=== PATIENT | female | born 1935 | race Caucasian/White ===

== ENCOUNTER → 2016-12-04 | Outpatient (CLI) | payer MEDICARE, BC | END | disposition home or self-care (01) | DX: M79.662 Pain in left lower leg (principal); M79.89 Other specified soft tissue disorders; Z86.718 Personal history of other venous thrombosis and embolism ==

== ENCOUNTER → 2016-12-14 | Outpatient (CLI) | payer MEDICARE, BC | END | disposition home or self-care (01) | LOC: RAD.S 12:20 | DX: M54.41 Lumbago with sciatica, right side (principal); M48.56XA Collapsed vertebra, not elsewhere classified, lumbar region, initial encounter for fracture; M43.16 Spondylolisthesis, lumbar region; M48.06 Spinal stenosis, lumbar region; N28.1 Cyst of kidney, acquired; R93.8 Abnormal findings on diagnostic imaging of other specified body structures; M54.42 Lumbago with sciatica, left side; G89.29 Other chronic pain ==

== ENCOUNTER 2016-12-19 10:53 | Day surgery (SDC) | payer MEDICARE, BC ==
[~2016-12-19] VITALS: Ht 170.2 cm; Wt 118.0 kg
== END 2016-12-19 15:10 | disposition home or self-care (01) ==
LOC: RAD.S 10:53 → EDSTATUS 13:00 → RAD.S 15:10
PROC: 0QU03JZ Supplement Lumbar Vertebra with Synthetic Substitute, Percutaneous Approach (ICD-10-PCS; principal; 2016-12-19)
PROC: 0QS03ZZ Reposition Lumbar Vertebra, Percutaneous Approach (ICD-10-PCS; principal; 2016-12-19)
DX: M48.56XA Collapsed vertebra, not elsewhere classified, lumbar region, initial encounter for fracture (principal); M48.06 Spinal stenosis, lumbar region; G89.29 Other chronic pain; M54.42 Lumbago with sciatica, left side; M54.41 Lumbago with sciatica, right side; M06.9 Rheumatoid arthritis, unspecified; Z90.49 Acquired absence of other specified parts of digestive tract; Z90.710 Acquired absence of both cervix and uterus; Z96.651 Presence of right artificial knee joint; E03.9 Hypothyroidism, unspecified; Z79.891 Long term (current) use of opiate analgesic; Z79.52 Long term (current) use of systemic steroids; Z79.899 Other long term (current) drug therapy

== ENCOUNTER 2016-12-22 09:02 | Emergency (ER) | payer MEDICARE, BC ==
--- NOTE | 2016-12-27 07:15 | ER ---
ADMIT: 12/22/2016 RM/LOC: ER [facility] MR#: [id number] [facility] [address] [place], [place] [address] LAI FINK [facility] [facility] [place] [address] Emergency Room Report SEX: F AGE: 81 : 1935 DATE: 12/22/2016 The patient is an 81-year-old, who had a kyphoplasty 3 days prior to coming to the emergency room today. She has complained of low back pain. She said the tramadol that she got for her pain kind of took the edge off the pain, but it has not helped much. She is saying she had difficulty walking. PAST MEDICAL HISTORY: Blood clots, atrial fibrillation, rheumatoid arthritis, and spinal stenosis. MEDICATIONS: Include: 1. Coumadin. 2. Prednisone. 3. Lasix. 4. Folic acid. 5. Vitamin D. PHYSICAL EXAMINATION: Muscle spasm with vertebral point tenderness. SKIN: Good color, turgor. VITAL SIGNS: Blood pressure 162/84, heart rate is 99, respirations 16, temp is 99.2, and O2 sats 96%. CLINICAL IMPRESSION: Lumbar pain, constipation, post kyphoplasty, chronic lumbar stenosis. I consulted with Dr. Castro and got her to get an MRI just to make sure she did have another new fracture above or below the kyphoplasty to be the reason for increased pain. This was clear, so we went ahead and discharged her home with a higher dose of medication for pain in the form of Percocet. Instructions given as far as having something to eat when she takes this medication, having someone at home help her in case this is too heavy of a medication for her pain control. She needs to follow up with Dr. Castro, keep hydrated. We also gave her a shot of Relistor to help with the constipation and encouraged to use MiraLax for constipation on a daily basis. SHIMA Griffin / Vasiliy Quinones MD / jair JOB #: [id number] CC: Vasiliy Quinones MD, Attending Physician UNKNOWN, Family Physician
== END 2016-12-22 15:10 | disposition home or self-care (01) ==
LOC: ER 09:02
DX: M48.06 Spinal stenosis, lumbar region (principal); K59.00 Constipation, unspecified; I48.91 Unspecified atrial fibrillation; M06.9 Rheumatoid arthritis, unspecified; Z98.890 Other specified postprocedural states; Z79.899 Other long term (current) drug therapy; Z79.01 Long term (current) use of anticoagulants; Z79.52 Long term (current) use of systemic steroids